=== PATIENT | female | born 1975 | race Caucasian/White ===

== ENCOUNTER 2020-08-30 10:33 | Emergency (ER) | payer SELFPAY ==
[~2020-08-30] VITALS: Ht 162.6 cm; Wt 63.0 kg
[2020-08-30 10:37] VITALS: BP 138/84
--- NOTE | 2020-08-30 11:36 | NUR ---
ND AND PA. UNABLE TO FIND ANYTHING IN PT VAGINA DURING EXAM.
== END 2020-08-30 11:56 | disposition home or self-care (01) ==
LOC: ED 11:45
DX: T19.2XXA Foreign body in vulva and vagina, initial encounter (principal); X58.XXXA Exposure to other specified factors, initial encounter; Y93.89 Activity, other specified; Y92.89 Other specified places as the place of occurrence of the external cause; Y99.8 Other external cause status
CPT/HCPCS: 99284